=== PATIENT | female | born 1990 | race Caucasian/White ===

== ENCOUNTER 2017-05-27 06:36 | Emergency (ER) | payer SELFPAY ==
[2017-05-27] MEDS ORDERED: LORazepam 2 MG/ML MDV IM ONE (06:37)
[2017-05-27] MEDS ORDERED: Lactated Ringers 1,000 ML IV ONE ×2 (06:38→07:13)
[2017-05-27] MEDS ORDERED: LORazepam 2 MG/ML MDV IVPUSH ONE ×5 (06:56→08:58)
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
[2017-05-27] MEDS: Lactated Ringers 1,000 ML IV ONE ×2 (07:43→08:32)
[2017-05-27] MEDS ORDERED: LORazepam 2 MG/ML MDV ONE (07:52)
[2017-05-27] MEDS ORDERED: Lactated Ringers 1,000 ML IV SCH (08:30)
[2017-05-27 09:57] VITALS: BP 140/79
== END 2017-05-27 09:20 ==
LOC: MERGE 06:36 → FB.ED 06:36
DX: T43.612A Poisoning by caffeine, intentional self-harm, initial encounter (principal)
CPT/HCPCS: 36415; 80048; 80076; 80305; 81001; 82550; 83605; 85027; 96361; 96372; 96374; 96376; 99285; G0480; J2060; J7120; 51702

== ENCOUNTER 2021-08-11 03:31 | Emergency (ER) | payer MEDICAID ==
[2021-08-11] MEDS ORDERED: Ketorolac 30 MG/ML SDV IM ONE (04:16)
[2021-08-11] MEDS ORDERED: Acetaminophen 500 MG Tab PO ONE (04:16)
--- NOTE | 2021-08-11 06:14 | EDM.PDOC ---
ED HPI GENERAL MEDICAL PROBLEM - General Chief Complaint: General Stated Complaint: FEVER Time Seen by Provider: 08/11/21 04:00 Source of Information: Reports: Patient History Limitations: Reports: No Limitations - History of Present Illness INITIAL COMMENTS - FREE TEXT/NARRATIVE: c/o fever x 1h lives with mother, not working, mother had fever 2w ago, her COVID was neg pt has not had COVID or vax was fishing yesterday (Sun) and thinks the sun caused the fever did not take any meds at home has mid back ache and SAWYER and myaglias, slept most of the time in ED after Toradol 60 mg IM and APAP 1000 mg PO flu test neg, COVID positive was anxious on arrival Head Pain Score (Numeric/FACES): 10 - Related Data Allergies Allergy/AdvReac Type Severity Reaction Status Date / Time seasonal Allergy Wheezing Uncoded 08/11/21 03:58 Home Meds: Home Meds . 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: Other (See Below), Other SUPERVISOR SAWMILL History: c-sections x2 Psychiatric History: Reports: Depression, Other (See Below) Other Psychiatric History: self-harm, cutting Hematologic History: Reports: Anemia, Other (See Below) Other Hematologic History: neg blood - Infectious Disease History Infectious Disease History: Reports: Chicken Pox - Past Surgical History HEENT Surgical History: Reports: Tonsillectomy GI Surgical History: Reports: Cholecystectomy Social & Family History - Family History Family Medical History: No Pertinent Family History - Tobacco Use Tobacco Use Status *Q: Current Every Day Tobacco User Years of Tobacco use: 5 Packs/Tins Daily: 0.2 - Caffeine Use Caffeine Use: Reports: None - Living Situation & Occupation Living situation: Reports: Single ED ROS GENERAL - Review of Systems Review Of Systems: See Below Constitutional: Reports: Fever HEENT: Reports: No Symptoms Respiratory: Reports: No Symptoms. Denies: Shortness of Breath, Wheezing, Cough Cardiovascular: Reports: No Symptoms. Denies: Chest Pain Endocrine: Reports: No Symptoms GI/Abdominal: Reports: No Symptoms : Reports: No Symptoms Musculoskeletal: Reports: Back Pain Skin: Reports: No Symptoms Neurological: Reports: Headache Psychiatric: Reports: No Symptoms Hematologic/Lymphatic: Reports: No Symptoms Immunologic: Reports: No Symptoms ED EXAM, GENERAL - Physical Exam Exam: See Below Exam Limited By: No Limitations General Appearance: Alert, WD/WN, Anxious, Other (alert, nontoxic, no cough observed, cooperative, moves easily) Eye Exam: Bilateral Eye: Normal Inspection Ears: Normal External Exam, Normal Canal, Hearing Grossly Normal, Normal TMs Ear Exam: Bilateral Ear: Auricle Normal, Canal Normal, TM normal Nose: Normal Inspection, Normal Mucosa, No Blood Throat/Mouth: Normal Inspection, Normal Lips, Normal Teeth, Normal Gums, Normal Oropharynx, Normal Voice, No Airway Compromise Neck: Normal Inspection, Supple, Non-Tender, Full Range of Motion. No: Lymphadenopathy (R), Lymphadenopathy (L) Respiratory/Chest: No Respiratory Distress, Lungs Clear, Normal Breath Sounds, No Accessory Muscle Use, Chest Non-Tender. No: Respiratory Distress, Decreased Breath Sounds, Crackles, Rales, Rhonchi, Wheezing, Stridor, Accessory Muscle Use, Retractions, Splinting, Prolonged Expiration Cardiovascular: Regular Rate, Rhythm, No Edema, No Gallop, No Murmur GI/Abdominal: Soft, Non-Tender Back Exam: Normal Inspection, Full Range of Motion. No: CVA Tenderness (R), CVA Tenderness (L) Extremities: Normal Inspection, Normal Range of Motion, Non-Tender, No Pedal Edema Neurological: Alert, Oriented, CN II-XII Intact, Normal Cognition, No Motor/Sensory Deficits Psychiatric: Anxious Skin Exam: Warm, Dry, Intact, Normal Color, No Rash Lymphatic: No Adenopathy Course - Vital Signs Last Recorded V/S: Last Vital Signs Temp 39.2 C H 08/11/21 04:21 Pulse 130 H 08/11/21 03:33 Resp 18 08/11/21 03:33 BP 128/82 08/11/21 03:33 Pulse Ox 98 08/11/21 03:33 - Orders/Labs/Meds Orders: Active Orders 24 hr Category Date Time Status Isolation [COMM] Routine Oth 08/11/21 04:17 Ordered Labs: Laboratory Tests 08/11/21 Range/Units 04:30 SARS-CoV-2 RNA (MIKEY) Positive H (NEGATIVE) Meds: Medications Discontinued Medications Generic Name Dose Route Start Last Admin Trade Name Freq PRN Reason Stop Dose Admin Acetaminophen 1,000 mg 08/11/21 04:16 08/11/21 04:21 Acetaminophen 500 Mg Tab PO 08/11/21 04:17 1,000 mg ONETIME ONE Administration Ketorolac Tromethamine 60 mg 08/11/21 04:16 08/11/21 04:21 Ketorolac 30 Mg/Ml Sdv IM 08/11/21 04:17 60 mg NOW ONE Administration - Re-Assessments/Exams Free Text/Narrative Re-Assessment/Exam: 08/11/21 06:13 tx for COVID reviewed with pt by myself and later by RN Deepika 08/11/21 06:18 HR 98 and temp 100.1 at discharge, pt did state that she felt better Departure - Departure Time of Disposition: 06:13 Disposition: Home, Self-Care 01 Condition: Good Clinical Impression: COVID-19 virus infection - Discharge Information *PRESCRIPTION DRUG MONITORING PROGRAM REVIEWED*: Not Applicable *COPY OF PRESCRIPTION DRUG MONITORING REPORT IN PATIENT TYE: Not Applicable Instructions: COVID-19: What to Do If You Are Sick- [facility] (01/08/2021), COVID-19: How to Protect Yourself and Others - [facility] Referrals: PCP,None [Primary Care Provider] - Additional Instructions: Get adequate rest. Quarantine at home. Use good handwashing, stay in a different room from others at home. Do not leave home until 7 days after fever gone. For fever and pain, take ibuprofen 200 mg 3 tabs and acetaminophen 325 mg 3 tabs 4 times a day for 7 days, longer if needed. Have someone obtain a pulse oximeter from store and check your oxygen level twice a day. Call your doctor if your oxygen gets down to 89%, as a few patients need oxygen at home and some eventually need to be hospitalized. Call your doctor's office if you have additional questions. You can also schedule a virtual visit by phone or zoom with your doctor. Use cool compresses on forehead for 10 minutes every hour as needed. Sepsis Event Note (ED) - Focused Exam Vital Signs: Vital Signs Temp Temp Pulse Resp BP Pulse Ox 08/11/21 04:21 39.2 C H 08/11/21 03:33 39.2 C H 130 H 18 128/82 98 - My Orders Last 24 Hours: My Active Orders 08/11/21 04:17 Isolation [COMM] Routine - Assessment/Plan Last 24 Hours: My Active Orders 08/11/21 04:17 Isolation [COMM] Routine
[2021-08-11 06:20] VITALS: BP 102/78; PULSE 103
== END 2021-08-11 08:34 | disposition home or self-care (01) ==
LOC: FB.ED 03:31
DX: U07.1 COVID-19 (principal); K21.9 Gastro-esophageal reflux disease without esophagitis; Z72.0 Tobacco use
CPT/HCPCS: 87804; 87804-59; 96372; 99283; A9270-GY; J1885; U0002

== ENCOUNTER 2022-06-28 16:16 | Emergency (ER) | payer MEDICAID ==
[2022-06-28 16:29] VITALS: BP 121/79; PULSE 94
== END 2022-06-28 17:30 | disposition home or self-care (01) ==
LOC: FB.ED 16:16
DX: S93.492A Sprain of other ligament of left ankle, initial encounter (principal); Z91.048 Other nonmedicinal substance allergy status; Z90.49 Acquired absence of other specified parts of digestive tract; X50.0XXA Overexertion from strenuous movement or load, initial encounter
CPT/HCPCS: 73610-LT; 99283

== ENCOUNTER 2022-07-29 10:50 | Emergency (ER) | payer MEDICAID, OTHER ==
[2022-07-30 15:01] LABS: ESTIMATED GFR 117 mL/min (>60)
== END 2022-07-29 13:33 ==
LOC: FB.ED 10:50
DX: S00.03XA Contusion of scalp, initial encounter (principal); F41.9 Anxiety disorder, unspecified; F17.210 Nicotine dependence, cigarettes, uncomplicated; F43.9 Reaction to severe stress, unspecified; K21.9 Gastro-esophageal reflux disease without esophagitis; Z79.899 Other long term (current) drug therapy
CPT/HCPCS: 36415; 80053; 85025; 96372; 99284

== ENCOUNTER 2023-01-23 08:47 | Emergency (ER) | payer MEDICAID ==
[2023-01-23 09:09] VITALS: PULSE 90
[2023-01-23] MEDS ORDERED: Acetaminophen 325 MG Tab PO ONE (09:34)
[2023-01-23] MEDS ORDERED: Ibuprofen 800 MG Tab PO ONE (09:34)
[2023-01-23 13:51] VITALS: BP 116/84
== END 2023-01-23 10:05 | disposition home or self-care (01) ==
LOC: FB.ED 08:47
DX: S63.502A Unspecified sprain of left wrist, initial encounter (principal); Z91.048 Other nonmedicinal substance allergy status; W00.0XXA Fall on same level due to ice and snow, initial encounter
CPT/HCPCS: 73110; 99283; A9270

== ENCOUNTER 2023-11-27 22:34 | Emergency (ER) | payer MEDICAID ==
[2023-11-27] MEDS ORDERED: Cyclobenzaprine 10 MG Tab PO ONE (22:35)
[2023-11-27 22:49] VITALS: BP 117/87; PULSE 84
[2023-11-27] MEDS: Ketorolac 30 MG/ML SDV IM ONE (22:58)
[2023-11-27] MEDS: hydrOXYzine HCl 50 MG/ML SDV IM ONE (22:59)
[2023-11-27 23:10] LABS: BILIRUBIN,URINE NEGATIVE (NEGATIVE); GLUCOSE,URINE NORMAL (NORMAL); KETONES,URINE NEGATIVE (NEGATIVE); LEUKOCYTE ESTERASE,URINE NEGATIVE (NEGATIVE); NITRITE,URINE NEGATIVE (NEGATIVE); OCCULT BLOOD,URINE NEGATIVE (NEGATIVE); PROTEIN,URINE NEGATIVE (NEGATIVE); UROBILINOGEN,URINE NORMAL (NEGATIVE)
[2023-11-27 23:12] LABS: APPEARANCE,URINE CLEAR (CLEAR); COLOR,URINE YELLOW (YELLOW)
[2023-11-27 23:13] LABS: BACTERIA,URINE FEW (NS); MUCUS,URINE FEW (NS); RBC,URINE 0-5 (0-5); SQUAMOUS EPITHELIAL CELLS,UR FEW (NS,R,O); WBC,URINE 0-5 (0-5)
== END 2023-11-27 23:23 | disposition home or self-care (01) ==
LOC: FB.ED 22:34
DX: M54.50 Low back pain, unspecified (principal); F17.210 Nicotine dependence, cigarettes, uncomplicated; E66.9 Obesity, unspecified; Z68.33 Body mass index [BMI] 33.0-33.9, adult; Z86.16 Personal history of COVID-19; Z91.09 Other allergy status, other than to drugs and biological substances
CPT/HCPCS: 81001; 96372; 99283; 99284; A9270-GY; J1885; J3410

== ENCOUNTER 2023-12-07 16:56 | Emergency (ER) | payer MEDICAID ==
[2023-12-07] MEDS ORDERED: Cyclobenzaprine 10 MG Tab PO ONE (16:57)
[2023-12-07] MEDS ORDERED: Acetaminophen/oxyCODONE 325-5 MG Tab PO ONE (16:57)
[2023-12-07] MEDS ORDERED: Naloxone 0.4 MG/ML SDV IVPUSH PRN (17:12)
[2023-12-07] MEDS: Ketorolac 30 MG/ML SDV IVPUSH ONE (17:21)
[2023-12-07 17:23] LABS: BASOPHILS ABSOLUTE AUTO 0.1 x10-3/uL (0.0-0.1); BASOPHILS PERCENT AUTO 0.7 % (0.2-1.5); EOSINOPHILS ABSOLUTE AUTO 0.2 x10-3/uL (0.0-0.8); EOSINOPHILS PERCENT AUTO 1.7 % (0.6-8.1); HEMATOCRIT 43.7 % (34.2-48.2); HEMOGLOBIN 14.6 g/dL (11.4-15.5); LYMPHOCYTES ABSOLUTE AUTO 1.6 x10-3/uL (1.0-4.4); LYMPHOCYTES PERCENT AUTO 11.3 % (18.4-52.1); MEAN CORPUSCULAR HEMOGLOBIN 28.1 pg (23.9-33.9); MEAN CORPUSCULAR HGB CONC 33.4 g/dL (31.9-34.8); MEAN CORPUSCULAR VOLUME 84.2 fL (76.7-100.5); MEAN PLATELET VOLUME 8.6 fL (7.1-12.4); MONOCYTES ABSOLUTE AUTO 0.6 x10-3/uL (0.3-1.0); MONOCYTES PERCENT AUTO 4.1 % (4.4-15.7); NEUTROPHILS ABSOLUTE AUTO 11.5 x10-3/uL (1.5-6.3); NEUTROPHILS PERCENT AUTO 82.2 % (30.8-76.2); PLATELET COUNT,PLT 262 x10(3)uL (151-488); RED BLOOD CELL COUNT 5.19 x10(6)uL (3.60-5.20); RED CELL DISTRIBUTION WIDTH 14.2 % (12.3-16.5)
[2023-12-07] MEDS: Sodium Chloride 0.9% 10 ML Syringe FLUSH PRN (17:25)
[2023-12-07 17:26] LABS: BLOOD UREA NITROGEN,BUN 15 mg/dL (7-18); BUN/CREATININE RATIO 18.8 (9-20); CALCIUM 9.7 mg/dL (8.6-10.2); CARBON DIOXIDE,CO2 25 mmol/L (21-32); CHLORIDE,CL 100 mmol/L (100-110); CREATININE 0.8 mg/dL (0.55-1.02); EST CRCL DRUG DOSING (CG) 85.56 mL/min; ESTIMATED GFR 99 mL/min (>60); GLUCOSE RANDOM 167 mg/dL (80-116); POTASSIUM,K 4.2 mmol/L (3.5-5.3); SODIUM,NA 136 mmol/L (135-145)
[2023-12-07 17:32] LABS: A/G RATIO 1.2; ALANINE AMINOTRANSFERASE,ALT 31 U/L (12-36); ALBUMIN 4.1 g/dL (3.5-5.2); ALKALINE PHOSPHATASE 63 IU/L (56-112); AMYLASE 58 U/L (25-115); ASPARTATE AMNIOTRANSFERASE,AST 13 IU/L (5-25); BILIRUBIN TOTAL 0.4 mg/dL (0.1-1.3); PROTEIN TOTAL,TP 7.4 g/dL (6.0-8.0)
[2023-12-07] MEDS: Morphine 4 MG/ML VIAL IVPUSH ONE ×2 (17:39→19:36)
[2023-12-07 17:43] LABS: BILIRUBIN,URINE NEGATIVE (NEGATIVE); GLUCOSE,URINE NORMAL (NORMAL); KETONES,URINE NEGATIVE (NEGATIVE); LEUKOCYTE ESTERASE,URINE NEGATIVE (NEGATIVE); NITRITE,URINE NEGATIVE (NEGATIVE); OCCULT BLOOD,URINE NEGATIVE (NEGATIVE); PROTEIN,URINE NEGATIVE (NEGATIVE); UROBILINOGEN,URINE NORMAL (NEGATIVE)
[2023-12-07 17:45] LABS: APPEARANCE,URINE CLEAR (CLEAR); BACTERIA,URINE FEW (NS); COLOR,URINE YELLOW (YELLOW); HYALINE CASTS,URINE FEW (NS); RBC,URINE 0-5 (0-5); SQUAMOUS EPITHELIAL CELLS,UR FEW (NS,R,O); WBC,URINE 0-5 (0-5)
[2023-12-07] MEDS: Iopamidol 755 Mg/ML 100 ML Bottle IV SCH (18:09)
[2023-12-07 21:10] VITALS: BP 120/67; PULSE 83
== END 2023-12-07 21:00 | disposition home or self-care (01) ==
LOC: FB.ED 16:56
DX: M62.830 Muscle spasm of back (principal); K80.20 Calculus of gallbladder without cholecystitis without obstruction; N94.89 Other specified conditions associated with female genital organs and menstrual cycle; E66.9 Obesity, unspecified; Z86.16 Personal history of COVID-19; F17.210 Nicotine dependence, cigarettes, uncomplicated; Z91.09 Other allergy status, other than to drugs and biological substances; Z68.33 Body mass index [BMI] 33.0-33.9, adult
CPT/HCPCS: 72131; 74177; 80053; 81001; 81025; 82150; 83690; 85025; 96374; 96375; 96376; 99284; 99284-25; A9270-GY; J1885; J2270; J3490; Q9967

== ENCOUNTER 2024-05-12 22:26 | Emergency (ER) | payer SELFPAY ==
[2024-05-12] MEDS ORDERED: Acetaminophen/HYDROcodone 325-5 MG Tab PO ONE (22:27)
[2024-05-12 23:30] VITALS: BP 117/78; PULSE 84
[2024-05-12] MEDS: Amoxicillin/Clavulanate K 875-125 MG Tab PO ONE (23:50)
[2024-05-12] MEDS: Acetaminophen/HYDROcodone 325-10 MG Tab PO ONE (23:50)
[2024-05-12] MEDS: Acetaminophen 325 MG Tab PO ONE (23:50)
== END 2024-05-12 23:58 | disposition home or self-care (01) ==
LOC: FB.ED 22:26
DX: K04.7 Periapical abscess without sinus (principal); K02.9 Dental caries, unspecified; J45.909 Unspecified asthma, uncomplicated; Z86.16 Personal history of COVID-19; Z90.49 Acquired absence of other specified parts of digestive tract
CPT/HCPCS: 99282; A9270

== ENCOUNTER 2024-07-25 10:14 | Emergency (ER) | payer SELFPAY ==
[2024-07-25] MEDS ORDERED: Sodium Chloride 0.9% 10 ML Syringe FLUSH PRN (10:58)
[2024-07-25] MEDS: Ketorolac 30 MG/ML SDV IVPUSH ONE (11:10)
[2024-07-25] MEDS: Ondansetron 4 MG/2 ML SDV IVPUSH ONE (11:14)
[2024-07-25 12:07] VITALS: BP 107/65; PULSE 91
== END 2024-07-25 12:08 | disposition home or self-care (01) ==
LOC: FB.ED 10:14
DX: G44.209 Tension-type headache, unspecified, not intractable (principal); F17.210 Nicotine dependence, cigarettes, uncomplicated; E66.9 Obesity, unspecified; Z86.16 Personal history of COVID-19; Z91.048 Other nonmedicinal substance allergy status
CPT/HCPCS: 96374; 96375; 99283; J1885; J2405

== ENCOUNTER 2025-04-21 06:50 | Emergency (ER) | payer MEDICAID ==
[2025-04-21 07:39] LABS: BASOPHILS ABSOLUTE AUTO 0.1 x10-3/uL (0.0-0.1); BASOPHILS PERCENT AUTO 0.7 % (0.2-1.5); EOSINOPHILS ABSOLUTE AUTO 0.4 x10-3/uL (0.0-0.8); EOSINOPHILS PERCENT AUTO 4.1 % (0.6-8.1); HEMATOCRIT 42.5 % (34.2-48.2); HEMOGLOBIN 14.4 g/dL (11.4-15.5); LYMPHOCYTES ABSOLUTE AUTO 2.2 x10-3/uL (1.0-4.4); LYMPHOCYTES PERCENT AUTO 24.8 % (18.4-52.1); MEAN CORPUSCULAR HEMOGLOBIN 28.7 pg (23.9-33.9); MEAN CORPUSCULAR VOLUME 84.3 fL (76.7-100.5); MEAN PLATELET VOLUME 8.7 fL (7.1-12.4); MONOCYTES ABSOLUTE AUTO 0.4 x10-3/uL (0.3-1.0); MONOCYTES PERCENT AUTO 4.2 % (4.4-15.7); NEUTROPHILS ABSOLUTE AUTO 5.8 x10-3/uL (1.5-6.3); NEUTROPHILS PERCENT AUTO 66.2 % (30.8-76.2); PLATELET COUNT,PLT 232 x10(3)uL (151-488); RED BLOOD CELL COUNT 5.04 x10(6)uL (3.60-5.20); RED CELL DISTRIBUTION WIDTH 14.2 % (12.3-16.5); WHITE BLOOD CELL COUNT,WBC 8.8 x10-3/uL (3.0-10.3)
[2025-04-21 07:44] LABS: BLOOD UREA NITROGEN,BUN 10 mg/dL (7-18); BUN/CREATININE RATIO 12.5 (9-20); CALCIUM 9.2 mg/dL (8.6-10.2); CARBON DIOXIDE,CO2 27 mmol/L (21-32); CHLORIDE,CL 104 mmol/L (100-110); CREATININE 0.8 mg/dL (0.55-1.02); EST CRCL DRUG DOSING (CG) 88.32 mL/min; ESTIMATED GFR 98 mL/min (>60); GLUCOSE RANDOM 145 mg/dL (80-116); POTASSIUM,K 3.3 mmol/L (3.5-5.3); SODIUM,NA 140 mmol/L (135-145)
[2025-04-21 07:49] LABS: A/G RATIO 1.3; ALANINE AMINOTRANSFERASE,ALT 35 U/L (12-36); ALKALINE PHOSPHATASE 65 IU/L (56-112); ASPARTATE AMNIOTRANSFERASE,AST 18 IU/L (5-25); BILIRUBIN TOTAL 0.6 mg/dL (0.1-1.3); PROTEIN TOTAL,TP 7.1 g/dL (6.0-8.0)
[2025-04-21 07:53] LABS: HEMOGLOBIN A1C 5.4 % (<5.7); LACTIC ACID 1.3 mmol/L (0.4-2.0)
[2025-04-21] MEDS: Ondansetron 4 MG Tab.DIS PO ONE (09:09)
[2025-04-21 09:13] VITALS: BP 113/68; PULSE 88
== END 2025-04-21 09:14 | disposition home or self-care (01) ==
LOC: FB.ED 06:50
DX: R55 Syncope and collapse (principal); F41.9 Anxiety disorder, unspecified; E66.9 Obesity, unspecified; F17.210 Nicotine dependence, cigarettes, uncomplicated; Z91.09 Other allergy status, other than to drugs and biological substances; Z86.16 Personal history of COVID-19; Z90.49 Acquired absence of other specified parts of digestive tract; Z68.31 Body mass index [BMI] 31.0-31.9, adult
CPT/HCPCS: 36415; 70450; 80053; 82947; 83036; 83605; 85025; 86140; 99284; 99285; Q0162

== ENCOUNTER 2025-08-17 18:53 | Emergency (ER) | payer MEDICAID | END 2025-08-17 19:50 | disposition left against medical advice (07) | LOC: FB.ED 18:53 | DX: G47.9 Sleep disorder, unspecified (principal); F41.9 Anxiety disorder, unspecified; Z91.09 Other allergy status, other than to drugs and biological substances; Z86.16 Personal history of COVID-19 | CPT/HCPCS: 99283 ==